=== PATIENT | female | born 1940 | race Caucasian/White ===

== ENCOUNTER 2016-09-12 23:06 | Inpatient (IN) | payer OTHER, MEDICARE ==
[2016-09-12] MEDS ORDERED: Diltiazem 5 mg/mL 5mL Vial IVP STA ×2 (23:19→23:57)
--- NOTE | 2016-09-12 23:21 | ED Physician Chart ---
Chief Complaint/HPI - Patient Information Date Seen:: 09/12/16 Time Seen:: 23:22 Chief Complaint:: sob History of Present Illness:: pt brought in by ems/acls for severe onset sob few hrs ago. pt has no cp. hx of afib and is on elequis for anticoag but no rate ctrl nrmlly needed. hr noted very high by ems. pt got albuterol 5mg neb on way from ems wo much improvement..tachycardic pre and post tx per ems no known fever/cough. no leg edema. Historian:: Patient, EMS Review:: Transfer documents Reviewed Review of Systems - Review of Systems General/Constitutional: No fever, No chills, No weight loss, No weakness, No diaphoresis, No edema, No loss of appetite Skin: No skin lesions, No rash, No bruising Head: No headache, No light-headedness Eyes: No loss of vision, No pain, No diplopia ENT: No earache, No nasal drainage, No sore throat, No tinnitus Neck: No neck pain, No swelling, No thyromegaly, No stiffness, No mass noted Cardio Vascular: No chest pain, Palpitations, No PND, No orthopnea, No edema Pulmonary: SOB, Cough, No cough, No sputum, No wheezing GI: No nausea, No vomiting, No diarrhea, No pain, No melena, No hematochezia, No constipation, No hematemesis G/U: No dysuria, No frequency, No hematuria Musculoskeletal: No bone or joint pain, No back pain, No muscle pain Endocrine: No polyuria, No polydipsia Psychiatric: No prior psych history, No depression, No anxiety, No suicidal ideation Hematopoietic: No bruising, No lymphadenopathy Allergic/Immuno: No urticaria, No angioedema Neurological: No syncope, No focal symptoms, No weakness, No paresthesia, No headache, No seizure, No dizziness, No confusion, No vertigo Past Medical History - Past Medical History Past Medical History: Asthma/COPD, Dementia, Other (a fib) Social History: Care Facility Medication: Reviewed Family Medical History - Family Member Mother History Unknown: Yes Physical Exam - Physical Examination General/Constitutional: Awake, Well-developed, well-nourished, Alert, No distress, Non-toxic appearing Head: Atraumatic Eyes: Lids, conjuctiva normal, PERRL, EOMI Skin: Nl inspection, No rash, No skin lesions, No ecchymosis, Well hydrated, No lymphadenopathy ENMT: External ears, nose nl, Nasal exam nl, Lips, teeth, gums nl Neck: Nontender, Full ROM w/o pain, No JVD, No nuchal rigidity, No bruit, No mass, No stridor Respiratory: Nl effort/Exclusion, Clear to Auscultation Other Respiratory comments:: sev sob. rapis resp. mild wheezes Cardio Vascular: RRR, No murmur, gallop, rubs, NL S1 S2 Other Cardio Vascular comments:: tachycardia 140-160 w irreg on monitor...likely afib rvr GI: No tenderness/rebounding/guarding, No organomegaly, No hernia, Normal BS's, Nondistended, No mass/bruits, No McBurney tenderness : No CVA tenderness Extremities: No tenderness or effusion, Full ROM, normal strength in all extremities, No edema, Normal digits & nails Other Extremities comments:: nontndr legs. no edema Neuro/Psych: Alert/oriented, DTR's symmetric, Normal sensory exam, Normal motor strength, Mood normal, Normal gait, No focal deficits Other Neuro/Psych comments:: mod dementia and too sob to talk much now. Misc: normal gait, Normal back, No paraspinal tenderness Labs/Radiology/EKG Results - Lab Results Results: Laboratory Tests 09/12/16 09/12/16 09/12/16 23:38 23:38 23:38 WBC 13.1 H RBC 3.09 L Hgb 9.9 L Hct 29.2 L MCV 94.6 MCH 32.0 H MCHC Differential 33.9 RDW 12.8 Plt Count 256 MPV 9.0 Neutrophils % 77.0 Lymphocytes % 15.4 L Monocytes % 7.1 Eosinophils % 0.3 Basophils % 0.2 PT INR PTT (Actin FS) D-Dimer Sodium 138 Potassium 4.0 Chloride 109 H Carbon Dioxide 15.0 L Anion Gap 18.0 H BUN 17 Creatinine 1.8 H Est GFR ( Amer) TNP Est GFR (Non-Af Amer) TNP BUN/Creatinine Ratio 9.4 Glucose 188 H Calcium 10.3 Total Bilirubin 1.3 H AST 167 H ALT 169 H Alkaline Phosphatase 122 H Troponin I 0.67 H* B-Natriuretic Peptide Total Protein 5.9 L Albumin 3.6 L Globulin 2.3 Albumin/Globulin Ratio 1.6 09/12/16 09/12/16 09/12/16 23:38 23:38 23:38 WBC RBC Hgb Hct MCV MCH MCHC Differential RDW Plt Count MPV Neutrophils % Lymphocytes % Monocytes % Eosinophils % Basophils % PT 11.8 H INR 1.18 PTT (Actin FS) 28.1 D-Dimer 2060 H Sodium Potassium Chloride Carbon Dioxide Anion Gap BUN Creatinine Est GFR ( Amer) Est GFR (Non-Af Amer) BUN/Creatinine Ratio Glucose Calcium Total Bilirubin AST ALT Alkaline Phosphatase Troponin I B-Natriuretic Peptide 4300.0 H Total Protein Albumin Globulin Albumin/Globulin Ratio - Radiology Results Results: cxr mild congestion w small effn rt base,. mild c-megally. - EKG Interpretations EKG Time:: 23:25 Rhythm: afib w rvr Sims: -29 Rate: 163 Comments:: ecg #2 at 12;13am ( after meds diltiazem for rate ctrl ) a fib w rate 115, axis 91, no acute injury/strain pattern Assessment - Assessment Critical Care Time: 90 Excludes all billable procedures: Yes This condition life threatening/high prob of deterioration: Yes Assessment/Comments:: pt in extremis...severe sob and tachycardia 140-160bpm. ecg looks very reg w wide complex and rate 163. doesnt look like v tach on monitor. adenosine 6mg iv no effect other than a mild transient slowing..seems to show irreg irreg afib pattern...dilt 10mg iv bolus and 5mg gtt... repeat bolus dilt w better rate effect.. ED Septic Shock - . Is Septic Shock (SBP<90, OR Lactate>4 mmol\L) present?: No Reassessment (Disposition) - Reassessment Reassessment:: case dw dr gill..is admitting pt to icu. asks me to order us for r/o dvt. is aware of high trop and d dimer and elev bnp.. Reassessment Condition:: Improved - Diagnosis Diagnosis:: 1 afib w rvr 2 mild chf exacerbation 3 copd exacerbation 4 high d-dimer of uncertain etiology 5 elevated troponin ...r/o acute coronary syndrome - Aftercare/Follow up Instructions Aftercare/Follow-Up Instructions:: Counseled pt & family regarding lab results/ diagnosis & need follow up - Patient Disposition Admitted to:: ICU Condition at Disposition:: Improved
[2016-09-12] MEDS ORDERED: Diltiazem 5 mg/mL 5mL Vial IVP ONE (23:29)
[2016-09-12 23:51] LABS: % BASOPHILS 0.2 % (0.0-2.0); % EOSINOPHILS 0.3 % (0.0-5.0); % LYMPHOCYTES 15.4 % (20.0-50.0); % MONOCYTES 7.1 % (2.0-10.0); HEMATOCRIT 29.2 % (35.0-45.0); HEMOGLOBIN 9.9 gm/dL (11.7-16.1); MEAN CELL VOLUME 94.6 fl (81-100); MEAN CORPUSCULAR HGB CONC 33.9 pg (28.0-36.0); NEUTROPHILE ABSOLUTE 10.2 Th/cmm (1.8-8.0); PLATELET COUNT 256 Th/cmm (150-400); RED BLOOD COUNT 3.09 Mil/cmm (3.80-5.20); RED CELL DISTRIBUTION WIDTH 12.8 % (11.5-20.0); WHITE BLOOD COUNT 13.1 Th/cmm (4.8-10.8)
[2016-09-12 23:59] LABS: ALB/GLOB RATIO 1.6 (1.0-1.8); ALKALINE PHOSPHATASE 122 U/L (34-104); BILIRUBIN,TOTAL 1.3 mg/dL (0.3-1.0); BUN - UREA NITROGEN 17 mg/dL (7-25); BUN/CREATININE RATIO 9.4; CALCIUM SERUM 10.3 mg/dL (8.6-10.3); CHLORIDE 109 mEq/L (98-107); CREATININE - SERUM 1.8 mg/dL (0.6-1.2); GLUCOSE 188 mg/dL (70-105); SGOT 167 U/L (13-39); SGPT/ALT 169 U/L (7-52); SODIUM SERUM 138 mEq/L (136-145)
[2016-09-13] MEDS ORDERED: Diltiazem 5 mg/mL 5mL Vial IVP ONE
[2016-09-13 00:02] LABS: INR 1.18 (0.5-1.4); PROTHROMBIN TIME (TEST) 11.8 SECONDS (9.5-11.5)
[2016-09-13] MEDS ORDERED: Diltiazem 5 mg/mL 25mL Vial IV ONE (00:26)
--- NOTE | 2016-09-13 00:26 | Admit Criteria Form ---
Admit Criteria Forms - Admit Criteria Diagnosis: ATRIAL FIBRILLATION Clinical Indications for Admission to Inpatient Care (Place 'X' for any and all applicable criteria): Admission indicated for ANY ONE of the following(1)(2)(3)(4)(5) : [ ]I. Myocardial ischemia [X]II. Dyspnea or hypoxemia [ ]III. Hemodynamic instability [ ]IV. Heart failure (e.g., pulmonary edema) (7) [ ]V. New-onset (less than 48 hours) atrial fibrillation with high risk for causing complications secondary to comorbidities (eg, symptomatic heart failure) [ ]. Altered mental status [ ]VII. Syncope [ ]VIII. Patient has implantable cardioverter defibrillator that has fired more than once within past 24hr or needs immediate adjustment of settings that cannot be done other than in inpatient setting. (8) [ ]IX. Suspected accessory pathway (e.g., Lqgio-Sfanzoiuh-Qnfuw syndrome) on ECG [ ]X. Recent systemic thromboembolism (eg, stroke) [ ]XI. Medication toxicity (e.g., digitalis) causing arrhythmia(9) [ ]XII. Underlying medical condition that necessitates inpatient care (e.g., thyrotoxicosis, pneumonia) (10) [ ]XIII. Continuous ECG monitoring is required for condition causing arrhythmia (e.g., severe hyperkalemia, hypokalemia, acid-base disturbance).(11)(12)(13) [ ]XIV. Initiation of antiarrhythmic drug therapy is needed in patient at high risk of adverse effects as indicated by ANY ONE of the following: [ ]a) Significant structural heart disease (e.g., reduced ejection fraction, congenital heart disease, valvular heart disease) [ ]b) Prolonged QT interval [ ]c) Underlying sinus node or atrioventricular conduction disturbances [ ]d) Need for treatment with antiarrhythmic drugs that have significant proarrhythmic potential (e.g., dofetilide, sotalol, procainamide) [ ]e) Patient whose sinus rhythm has never been observed on ECG [ ]XV. Intolerable symptoms despite optimal outpatient treatment [ ]XVI. Elective or urgent cardioversion that cannot be performed on outpatient basis or during observation care. [A] (Use also Atrial Fibrillation: Observation Care ) as appropriate.(14) [ ]XVII.Contraindications and/or Inappropriate clinical situations for Observational Care in patients with Atrial Fibrillation, when ANY ONE of the following is required: [ ]a) Patient with High risk of cardiac embolism (e.g, patients with previous cardiac embolism, LVEF < 40%, age >75 and patients with prosthetic valve) 18 [ ]b) Patient with Moderate risk including DM patient, CAD and patient aged 65-75 18 [ ]c) Patient with any change in cardiac biomarker especially troponin should be managed as high risk in an inpatient setting 19 [ ]d) Physician judgement irrespective of ECG and other diagnostic findings 20 [ ]XVIII.General contraindications and/or Inappropriate clinical situations for Observational Care in patients with Atrial Fibrillation, when ANY ONE of the following is required: [ ]a) Prediction of prolongation of LOS based on ANY ONE of the following may be considered as a contraindication for observational care 2, 3, 4, 5, 6, 7, 8, 9, 10, 11 [ ]i) Age > 65 yrs. [ ]ii) Patient arriving by ambulance [ ]iii) Patient with high acuity [ ]iv) Patient requiring vital sign monitoring [ ]v) Patient on IV medication [ ]b) Systolic blood pressures 180mmHg 3,12 [ ]c) Patient with altered mental status including delirium and other alteration of consciousness3 [ ]d) Patient whose discharge disposition will be to a usp home or rehabilitation home should not be managed in Emergency Department Observation Unit. CMS rule requires 3 days hospital stay before such placement.3,13 [ ]e) Patient with failure to thrive due to broad array of etiologies 3,16,17 [ ]f) Inability to ambulate 3,14 Extended stay beyond goal length of stay may be needed for (1)(25)(26): [ ]a) Unstable comorbidities [ ]b) Persistently uncontrolled atrial fibrillation or other arrhythmias [ ]c) Acute thromboembolic event (e.g., stroke, limb ischemia) [ ]d) Need for inpatient attainment of full anticoagulation The original [employer] content created by [employer] has been revised. The portions of the content which have been revised are identified through the use of italic text or in bold, and [facility] has neither reviewed nor approved the modified material. All other unmodified content is copyright [facility]. Please see references footnoted in the original [facility] edition 2016 Admit Criteria Met?: Yes
[2016-09-13] MEDS ORDERED: Metoprolol tartrate 1 mg/ml 5mL Amp IV ONE ×3 (02:00→03:45)
[2016-09-13] MEDS ORDERED: Metoprolol tartrate 1 mg/ml 5mL Amp IV SCH (02:00)
[2016-09-13] MEDS: NITROGLYCERIN OINT 2% 1 INCH PACKET TP SCH ×2 (02:45→08:47)
[2016-09-13] MEDS ORDERED: Non-Formulary Item 1 EA (Apixaban [Eliquis] 1 TAB) PO SCH (09:00)
[2016-09-13] MEDS: Aspirin 81mg Chewable Tab PO SCH (09:39)
[2016-09-13] MEDS ORDERED: Pneumococcal Vaccine 0.5 mL Vial IM ONE (10:00)
--- NOTE | 2016-09-13 11:07 | History & Physical ---
CHIEF COMPLAINT: Shortness of breath. HISTORY SOURCE: Talking to the daughter and Emergency Room MD. HISTORY OF PRESENT ILLNESS: A 76-year-old female recently placed at [facility] by her insurance after the patient had 2 visits to Emergency Room at [facility], one for acute urinary tract infection and one for acute kidney injury. The patient was on multiple diuretics at that time. The patient's diuretics were discontinued. The patient's daughter states that she has had previous history of stroke and she also has a history of irregular heartbeat. According to the patient, she did have shortness of breath on Saturday and she was taken to [place] [facility]. The patient was not found to have any significant findings and the patient was sent back to retirement. Unfortunately, last night, the patient had shortness of breath and she was given some breathing treatment with albuterol. The patient started to have an irregular heart rate and wheezing as well. The patient was rushed into Emergency Room by 911. The patient was evaluated by the Emergency Room MD and advised to be admitted in the presence of irregular heartbeat, slightly elevated troponin and elevated BNP. The patient has dementia, does not provide any meaningful history. PAST MEDICAL HISTORY: Remarkable for: 1. Chronic atrial fibrillation. 2. CVA. 3. Questionable congestive heart failure. 4. Hypertension. 5. Degenerative joint disease. 6. Osteoporosis. MEDICATIONS AT HOME: List has been reviewed and reconciled appropriately. ALLERGIES: The patient is not allergic to medication. SOCIAL HISTORY: She lives in [facility]. The patient had a long time ago history of alcohol use, but she does not drink any more. The patient has no smoking cigarettes. FAMILY MEDICAL HISTORY: Remarkable for coronary artery disease, CVA and cancer. REVIEW OF SYSTEMS: The patient is very nervous and anxious at this time and does not provide any meaningful history. PHYSICAL EXAMINATION: GENERAL: This patient is alert, awake, lying in the bed without any acute distress. VITAL SIGNS: Temperature 99, pulse is 114, respiratory rate is 20, blood pressure 100/60. SKIN: Warm to touch. HEENT: Normocephalic, atraumatic. Extraocular muscles are intact. Tongue was pink and coated. NECK: Supple, no JVD, no lymphadenopathy, thyromegaly. HEART: Both heart sounds are irregularly irregular. CHEST AND LUNGS: Equal in expansion with no wheezing, but fine basilar crackles noted. ABDOMEN: Soft. No guarding. No rigidity. Liver and spleen not palpable. No palpable mass. EXTREMITIES: No edema, no cyanosis. Peripheral pulses are +1. No calf tenderness noted. NEUROLOGIC: Alert, awake, follows commands. Decreased power throughout the upper and lower is noted, but no gross neuro deficits noted except remarkable for dementia. AVAILABLE DIAGNOSTIC DATA: Performed in the Emergency Room has been reviewed. Total time reviewing the record is approximately 15 minutes. CLINICAL IMPRESSION: 1. Acute pulmonary edema. 2. Atrial fibrillation with rapid ventricular response. 3. Elevated troponin, rule out non Q-wave myocardial infarction in the presence of cardiac history, though it could be related to demand ischemia from atrial fibrillation and congestive heart failure. 4. Dementia. 5. Degenerative joint disease. 6. Possible congestive heart failure history. PLAN: 1. Admit this patient to ICU. 2. Cardiology consultation. 3. Oxygen. 4. Rate control. 5. Diuretics. 6. Beta-arlene. 7. Statins. 8. IMELDA and ARBs. 9. Cardiac enzymes follow up. 10. Cardiology consultations. 11. Followup lab. 12. Followup chest x-ray. 13. 2D echocardiogram. 14. The patient may require coronary angiogram. We will discuss with deposit refund clerk if troponin starts going up. 15. Needs low molecular weight heparin. 16. Care plan reviewed and discussed with patient's daughter at bedside. JOB# [id number]
--- NOTE | 2016-09-13 12:37 | Diagnostic Imaging Report ---
Bilateral lower extremity Doppler venous ultrasound exam HISTORY: Pain/swelling Sonographic sector images were obtained through the deep venous systems of both legs. Associated Doppler data was obtained. The exam demonstrates patency of the common femoral, superficial femoral, popliteal, and posterior tibial veins bilaterally. Specifically, no thrombus is seen. There are normal compressibility and augmentation responses. IMPRESSION: Negative exam for deep vein thrombophlebitis.
[2016-09-13] MEDS: Potassium Chloride 20 mEq ER Tab PO SCH (12:48)
--- NOTE | 2016-09-13 15:59 | Diagnostic Imaging Report ---
Chest x-ray HISTORY: Shortness of breath Marked cardiomegaly. Metastatic calcination seen in the aorta. There is a degree of pulmonary vascular redistribution suggesting a degree of congestive heart failure. Evidence of minimal right pleural effusion. IMPRESSION: 1. Cardiomegaly with evidence of a degree of congestive heart failure.
[2016-09-13] MEDS ORDERED: Enoxaparin 40 mg/0.4 mL 0.4mL Syr SUBQ SCH (17:00)
--- NOTE | 2016-09-13 17:50 | Cardiology ---
Patient of Dr. Rodriguez. M-MODE ECHOCARDIOGRAM: Mitral valve, anterior leaflet of the mitral valve shows decreased excursion, EF velocity. Posterior leaflet of the mitral valve shows decreased excursion. ____ the patient has increased left ventricle ventricular posterior wall shows increased thickness, decreased excursion. Interventricular septum shows increased thickness, decreased excursion, ejection fraction 35%. Left atrium enlarged 4.2 cm. Aortic root shows normal dimension, normal excursion of aortic leaflets. CONCLUSION: Cardiomyopathy, ejection fraction 35%. Minimal hypertrophy of the left ventricle, left atrial enlargement. 2D ECHO: Long axis view shows enlarged left ventricular cavity with decreased ejection fraction, hypertrophy of the left ventricle. Left atrium enlarged. Aortic root shows normal dimension, normal excursion of aortic leaflets. Short axis view of mitral valve normal. Short axis view of aortic valve normal. Apical four chamber view shows enlarged left ventricular cavity with minimal hypertrophy of the left ventricle. Left atrium enlarged. Right ventricular cavity, right atrium normal, no pericardial effusion. CONCLUSION: Cardiomyopathy, ejection fraction 35%, left atrial enlargement, minimal hypertrophy of the left ventricle. Doppler study shows moderate tricuspid regurgitation, mild aortic regurgitation. JOB# [id number]
[2016-09-13] MEDS ORDERED: Atorvastatin Calcium 10 MG TAB PO SCH (21:00)
--- NOTE | 2016-09-14 02:49 | Consultation ---
The patient of Dr. Rodriguez. HISTORY AND PHYSICAL: This is a 76-year-old female patient who has recently been seen in emergency 2-3 times secondary to urinary tract infection. The patient was last at [facility]. The patient got more short of breath. The patient was given breathing treatment. Following this, the patient continued to have problems. The patient came to the Emergency Room with atrial fibrillation with uncontrolled ventricular response, congestive heart failure with elevated BNP level and slightly elevated troponin level. Hence, Cardiology consult was requested. PAST MEDICAL HISTORY: Atrial fibrillation, CVA with late effect, congestive heart failure, systolic dysfunction, cardiomyopathy, CKD stage 3, hypertension and degenerative joint disease. FAMILY HISTORY: Unremarkable. SOCIAL HISTORY: No history of smoking or alcohol abuse. ALLERGIES: No known allergies. PHYSICAL EXAMINATION: VITAL SIGNS: Blood pressure 106/70, pulse 800 irregular and respirations 28. HEAD: Head is normocephalic. No lumps or bumps. EYES: Pupils equal, reactive to light. Fundi show AV nicking, sclerae white, conjunctivae pink. NECK: Carotid 2+. Normal upstroke. JVD 10 cm above the sternal angle. Thyroid not palpable. Lymph nodes not palpable. CHEST: Shows increased AP diameter. No kyphosis or scoliosis. LUNGS: Bilateral rales. Decreased breath sounds at both the bases. HEART: PMI sixth intercostal space with lateral to midclavicular line. S1 irregular. S2, S3, S4, soft systolic murmur. ABDOMEN: Soft. Liver and spleen not palpable. No organomegaly. Bowel sounds active. NEUROLOGIC: No focal neurological deficit. EXTREMITIES: Peripheral pulses 2+. No pedal edema. CLINICAL IMPRESSION: Atrial fibrillation with rapid ventricular response, slightly elevated troponin level secondary to congestive heart failure, cardiomyopathy and atrial fibrillation. Osteoporosis, dementia, degenerative joint disease and cardiomyopathy, ejection fraction 35%. PLAN: At the present time, we will anticoagulate the patient's diuretics, preload afterload reduction, monitor the patient closely, get an echocardiogram. JOB# [id number]
[2016-09-14 04:51] LABS: HEMATOCRIT 26.8 % (35.0-45.0); HEMOGLOBIN 9.1 gm/dL (11.7-16.1); MEAN CELL VOLUME 92.6 fl (81-100); MEAN CORPUSCULAR HEMOGLOBIN 31.5 pg (27.0-31.0); MEAN CORPUSCULAR HGB CONC 34.1 pg (28.0-36.0); MEAN PLATELET VOLUME 9.6 fl; RED CELL DISTRIBUTION WIDTH 13.2 % (11.5-20.0)
[2016-09-14 05:06] LABS: WHITE BLOOD COUNT 16.5 Th/cmm (4.8-10.8)
[2016-09-14 05:07] LABS: PLATELET COUNT 187 Th/cmm (150-400)
[2016-09-14 05:19] LABS: ALB/GLOB RATIO 1.6 (1.0-1.8); ALKALINE PHOSPHATASE 125 U/L (34-104); ANION GAP 10.8 (7.0-16.0); BILIRUBIN,TOTAL 0.8 mg/dL (0.3-1.0); BUN - UREA NITROGEN 43 mg/dL (7-25); BUN/CREATININE RATIO 17.2; CALCIUM SERUM 9.8 mg/dL (8.6-10.3); CARBON DIOXIDE 19.1 mEq/L (21.0-31.0); CHLORIDE 104 mEq/L (98-107); CREATININE - SERUM 2.5 mg/dL (0.6-1.2); GLUCOSE 113 mg/dL (70-105); MAGNESIUM 2.1 mg/dL (1.9-2.7); POTASSIUM SERUM 4.9 mEq/L (3.5-5.1); SGOT 2404 U/L (13-39); SGPT/ALT 2713 U/L (7-52); SODIUM SERUM 129 mEq/L (136-145)
[2016-09-14 05:35] LABS: BAND NEUTROPHILE 4 % (0-10); BASOPHIL 0 % (0-3); EOSINOPHIL 0 % (0-5); NEUTROPHILS 87 % (40-80); PLATELET ESTIMATE ADEQUATE (NORMAL); PLATELET MORPHOLOGY NORMAL (NORMAL); TOTAL CELLS COUNTED 100
[2016-09-14 05:46] LABS: CHOLESTEROL 111 mg/dL (<200); TRIGLYCERIDES 80 mg/dL (<150)
[2016-09-14] MEDS: Aspirin 81mg Chewable Tab PO SCH (08:26)
[2016-09-14] MEDS: Potassium Chloride 20 mEq ER Tab PO SCH (08:30)
[2016-09-14 10:43] LABS: INR 1.3 (0.5-1.4); PROTHROMBIN TIME (TEST) 13.1 SECONDS (9.5-11.5)
--- NOTE | 2016-09-14 16:06 | Diagnostic Imaging Report ---
CHEST X-RAY: AP view INDICATION: CHF COMPARISON: Chest x-ray 09/12/2016 FINDINGS: Improving congestive changes are seen. Small bilateral effusions are noted. Cardiomegaly is noted with atherosclerosis. IMPRESSION: Improving congestive changes. Small bilateral effusions. Atelectasis versus less likely infiltrate of the lung bases cannot be excluded. Cardiomegaly and atherosclerotic vascular disease.
[2016-09-14] MEDS ORDERED: Enoxaparin 60 mg/0.6 mL 0.6mL Syr SUBQ SCH (17:00)
[2016-09-14] MEDS: Enoxaparin 80 mg/0.8 mL 0.8mL Syr SUBQ SCH (17:27)
[2016-09-15 05:16] LABS: % BASOPHILS 0.1 % (0.0-2.0); % EOSINOPHILS 0.3 % (0.0-5.0); % LYMPHOCYTES 10.8 % (20.0-50.0); % MONOCYTES 6.4 % (2.0-10.0); % NEUTROPHILS 82.4 % (40.0-80.0); MEAN CELL VOLUME 91.7 fl (81-100); MEAN CORPUSCULAR HEMOGLOBIN 31.7 pg (27.0-31.0); MEAN CORPUSCULAR HGB CONC 34.6 pg (28.0-36.0); MEAN PLATELET VOLUME 10.1 fl; PLATELET COUNT 210 Th/cmm (150-400); RED BLOOD COUNT 2.83 Mil/cmm (3.80-5.20); RED CELL DISTRIBUTION WIDTH 12.8 % (11.5-20.0); WHITE BLOOD COUNT 13.3 Th/cmm (4.8-10.8)
[2016-09-15 05:27] LABS: ALB/GLOB RATIO 1.6 (1.0-1.8); ALKALINE PHOSPHATASE 113 U/L (34-104); ANION GAP 9.2 (7.0-16.0); BILIRUBIN,TOTAL 0.6 mg/dL (0.3-1.0); BUN - UREA NITROGEN 52 mg/dL (7-25); BUN/CREATININE RATIO 23.6; CALCIUM SERUM 9.4 mg/dL (8.6-10.3); CARBON DIOXIDE 19.3 mEq/L (21.0-31.0); CHLORIDE 107 mEq/L (98-107); CREATININE - SERUM 2.2 mg/dL (0.6-1.2); GLUCOSE 90 mg/dL (70-105); MAGNESIUM 2.2 mg/dL (1.9-2.7); POTASSIUM SERUM 4.5 mEq/L (3.5-5.1); SODIUM SERUM 131 mEq/L (136-145)
[2016-09-15 05:51] LABS: SGPT/ALT 2098 U/L (7-52)
[2016-09-15 05:52] LABS: SGOT 1147 U/L (13-39)
--- NOTE | 2016-09-15 07:34 | Consultation ---
REASON FOR CONSULTATION: Abnormal liver enzymes. HISTORY OF PRESENT ILLNESS: This consult was obtained through the courtesy of Dr. Rodriguez for this 76-year-old with history of CVA, hypertension, obesity, atrial fibrillation, possible congestive heart failure, degenerative joint disease and osteoporosis, admitted to the hospital because of rapid atrial fibrillation. While in the hospital, she had a significant elevation of liver enzymes. GI consult was called in for further evaluation. The patient is a poor historian. She denies any abdominal pain, nausea, vomiting, diarrhea, constipation or bleeding. PAST MEDICAL HISTORY: CVA, atrial fibrillation, congestive heart failure, hypertension, degenerative joint disease, and osteoporosis. PAST SURGICAL HISTORY: Denies. SOCIAL HISTORY: Nonsmoker, nonalcoholic, non-IV drug abuser. FAMILY HISTORY: She has sisters with breast cancer. ALLERGIES: No known drug allergies. MEDICATIONS: The patient is on aspirin, citalopram, Celexa, Aricept, Lovenox, Lasix, Cozaar, Lopressor, Protonix, potassium, REVIEW OF SYSTEMS: Again, no weight loss. No nausea, vomiting, hematemesis, diarrhea, constipation, abdominal pain. PHYSICAL EXAMINATION: GENERAL: The patient is awake, oriented to self and place. VITAL SIGNS: Blood pressure is 126/72, heart rate 96, respiratory rate 20 and temperature is 97.4. HEAD AND NECK: Pupils reactive to light. Extraocular muscles intact. Sclerae are anicteric. Conjunctivae not pale. Oral cavity, no lesion. NECK: Supple. No jugular venous distention. No carotid bruit or lymph node. CHEST: Good respiratory movements. LUNGS: Showed few rhonchi. CARDIOVASCULAR SYSTEM: Regular rate and rhythm. No murmur or gallop. ABDOMEN: Soft, obese, positive bowel sounds. EXTREMITIES: No edema. CENTRAL NERVOUS SYSTEM: Nonfocal. LABORATORY DATA: PT is 13.1 seconds. D-dimer is 2060. White count is 16.5, H and H of 9.1 and 26.8 with platelets of 187. Chemistry: AST was 167 two days ago, now 2404. ALT was 169 two days ago, now 2713. Bilirubin is 0.8, alkaline phosphatase 125. IMPRESSION: A 76-year-old with multiple medical problems, now with abnormal liver enzymes. ASSESSMENT AND PLAN: This significant elevation of liver enzymes in this clinical setting is consistent with acute ischemic hepatitis. Other differential would include drug-induced hepatotoxicity verus acute viral hepatitis, even though both are less likely and the picture is not suggestive of autoimmune as well. RECOMMENDATIONS: 1. Monitor labs. 2. Check Tylenol level. 3. Check hepatitis panel. 4. Recheck liver enzymes in the morning. 5. Abdominal ultrasound. 6. Further recommendations to follow. The expectation was acute ischemic hepatitis, that number would continue to improve rapidly. If not, then further recommendations would follow. Other medical problems such as hypertension, congestive heart failure, atrial fibrillation, etc., as per Dr. Rodriguez. Thank you, Dr. Rodriguez, for allowing me to participate in the care of this patient. If you have any further questions, please let me know. JOB# [id number]
[2016-09-15] MEDS: Aspirin 81mg Chewable Tab PO SCH (08:30)
[2016-09-15] MEDS: Potassium Chloride 20 mEq ER Tab PO SCH (08:31)
--- NOTE | 2016-09-15 10:12 | Diagnostic Imaging Report ---
Abdominal ultrasound HISTORY: Abnormal liver function tests, pain The liver appears enlarged. No definite focal lesions seen. The gallbladder appears contracted. As the patient was not fasting, the finding is inconclusive. If gallbladder disease is suspected, the exam should be repeated with the patient nothing by mouth. No biliary dilatation. The pancreas cannot be seen due to bowel gas. The kidneys appear normal bilaterally. No other retroperitoneal or intra-abdominal abnormalities. IMPRESSION: 1. Contracted gallbladder. As the patient was not fasting, the finding is inconclusive. If gallbladder disease is suspected, repeat exam with the patient nothing by mouth recommended. 2. Hepatomegaly
--- NOTE | 2016-09-15 10:25 | Diagnostic Imaging Report ---
Portable chest x-ray HISTORY: Shortness of breath Compared with prior exam of 2016, the heart is enlarged. Atherosclerotic calcification seen in the tortuous aorta. Density noted about the left costophrenic angle. Findings may be associated with a small pleural effusion. No acute focal pulmonary parenchymal processes. IMPRESSION: 1. Cardiomegaly with atherosclerotic vascular changes 2. Question small left pleural effusion 3. No definite acute focal pulmonary parenchymal processes
[2016-09-15 11:09] LABS: HEP B CORE IGM Negative (Negative); HEP C ANTIBODY <0.1 s/co ratio (0.0-0.9)
[2016-09-15] MEDS: Enoxaparin 80 mg/0.8 mL 0.8mL Syr SUBQ SCH (19:02)
[2016-09-16 04:48] LABS: MEAN PLATELET VOLUME 9.5 fl; RED BLOOD COUNT 2.87 Mil/cmm (3.80-5.20)
[2016-09-16 05:14] LABS: % BASOPHILS 0.2 % (0.0-2.0); % EOSINOPHILS 1.1 % (0.0-5.0); % NEUTROPHILS 70.7 % (40.0-80.0); HEMATOCRIT 26.8 % (35.0-45.0); MEAN CELL VOLUME 93.4 fl (81-100); MEAN CORPUSCULAR HEMOGLOBIN 31.5 pg (27.0-31.0); MEAN CORPUSCULAR HGB CONC 33.7 pg (28.0-36.0); NEUTROPHILE ABSOLUTE 6.3 Th/cmm (1.8-8.0); PLATELET COUNT 225 Th/cmm (150-400)
[2016-09-16 05:24] LABS: AMYLASE SERUM 89 U/L (29-103); ANION GAP 7.1 (7.0-16.0); BILIRUBIN,TOTAL 0.7 mg/dL (0.3-1.0); BUN - UREA NITROGEN 51 mg/dL (7-25); BUN/CREATININE RATIO 28.3; CALCIUM SERUM 9.5 mg/dL (8.6-10.3); CHLORIDE 108 mEq/L (98-107); CREATININE - SERUM 1.8 mg/dL (0.6-1.2); GLUCOSE 89 mg/dL (70-105); LIPASE 151 U/L (11-82); POTASSIUM SERUM 4.1 mEq/L (3.5-5.1); SODIUM SERUM 132 mEq/L (136-145); URIC ACID 11.3 mg/dL (2.3-6.6)
[2016-09-16 05:25] LABS: ALB/GLOB RATIO 1.9 (1.0-1.8); BILIRUBIN,DIRECT 0.26 mg/dL (0.0-0.2); BILIRUBIN,TOTAL 0.7 mg/dL (0.3-1.0)
[2016-09-16 05:28] LABS: WHITE BLOOD COUNT 8.9 Th/cmm (4.8-10.8)
[2016-09-16 05:36] LABS: ALB/GLOB RATIO 1.9 (1.0-1.8); ALKALINE PHOSPHATASE 119 U/L (34-104); SGOT 673 U/L (13-39); SGPT/ALT 1789 U/L (7-52)
[2016-09-16 05:48] LABS: INR 1.1 (0.5-1.4)
[2016-09-16 06:36] LABS: TSH 1.75 uIU/ml (0.34-5.60)
[2016-09-16] MEDS: Aspirin 81mg Chewable Tab PO SCH (09:49)
[2016-09-16] MEDS ORDERED: Morphine Sulfate 2 mg/mL 1mL Syr IVP PRN (12:37)
[2016-09-16] MEDS ORDERED: Albuterol Nebulizer 2.5mg/3mL IH PRN (12:37)
[2016-09-16] MEDS ORDERED: guaiFENesin 200 MG/10 ML UDC PO PRN (12:37)
--- NOTE | 2016-09-16 12:41 | Internal Medicine Prog Note ---
Internal Medicine Subjective - Subjective Patient seen and examined:: with staff, chart reviewed Patient is:: awake, verbal, interactive Patient Complaints of:: congestion Per staff patient is:: no adverse event, poor appetite, noncompliant, confused Internal Medicine Objective - Results Result Diagrams: 09/16/16 04:35 09/16/16 04:35 Recent Labs: Laboratory Last Values WBC 8.9 Th/cmm (4.8-10.8) D 09/16/16 04:35 RBC 2.87 Mil/cmm (3.80-5.20) L 09/16/16 04:35 Hgb 9.0 gm/dL (11.7-16.1) L 09/16/16 04:35 Hct 26.8 % (35.0-45.0) L 09/16/16 04:35 MCV 93.4 fl (81-100) 09/16/16 04:35 MCH 31.5 pg (27.0-31.0) H 09/16/16 04:35 MCHC Differential 33.7 pg (28.0-36.0) 09/16/16 04:35 RDW 13.0 % (11.5-20.0) 09/16/16 04:35 Plt Count 225 Th/cmm (150-400) 09/16/16 04:35 MPV 9.5 fl 09/16/16 04:35 Neutrophils % 70.7 % (40.0-80.0) 09/16/16 04:35 Band Neutrophils % 4 % (0-10) 09/14/16 04:30 Lymphocytes % 18.0 % (20.0-50.0) L 09/16/16 04:35 Monocytes % 10.0 % (2.0-10.0) 09/16/16 04:35 Eosinophils % 1.1 % (0.0-5.0) 09/16/16 04:35 Basophils % 0.2 % (0.0-2.0) 09/16/16 04:35 Neutrophils (Manual) 87 % (40-80) H 09/14/16 04:30 Lymphocytes 5 % (20-50) L 09/14/16 04:30 Monocytes 4 % (2-10) 09/14/16 04:30 Eosinophils 0 % (0-5) 09/14/16 04:30 Basophils 0 % (0-3) 09/14/16 04:30 Platelet Estimate ADEQUATE (NORMAL) 09/14/16 04:30 Platelet Morphology NORMAL (NORMAL) 09/14/16 04:30 RBC Morph Micro Appear NORMAL (NORMAL) 09/14/16 04:30 PT 11.0 SECONDS (9.5-11.5) 09/16/16 04:35 INR 1.10 (0.5-1.4) 09/16/16 04:35 PTT (Actin FS) 28.5 SECONDS (26.0-38.0) 09/14/16 04:30 D-Dimer 2060 ng/mL (100-400) H 09/12/16 23:38 Sodium 132 mEq/L (136-145) L 09/16/16 04:35 Potassium 4.1 mEq/L (3.5-5.1) 09/16/16 04:35 Chloride 108 mEq/L (98-107) H 09/16/16 04:35 Carbon Dioxide 21.0 mEq/L (21.0-31.0) 09/16/16 04:35 Anion Gap 7.1 (7.0-16.0) 09/16/16 04:35 BUN 51 mg/dL (7-25) H 09/16/16 04:35 Creatinine 1.8 mg/dL (0.6-1.2) H 09/16/16 04:35 Est GFR ( Amer) TNP 09/16/16 04:35 Est GFR (Non-Af Amer) TNP 09/16/16 04:35 BUN/Creatinine Ratio 28.3 09/16/16 04:35 Glucose 89 mg/dL (70-105) 09/16/16 04:35 Hemoglobin A1c % 5.5 % (4.0-6.0) 09/12/16 23:38 Uric Acid 11.3 mg/dL (2.3-6.6) H 09/16/16 04:35 Calcium 9.5 mg/dL (8.6-10.3) 09/16/16 04:35 Magnesium 2.2 mg/dL (1.9-2.7) 09/15/16 04:35 Total Bilirubin 0.7 mg/dL (0.3-1.0) 09/16/16 04:35 Direct Bilirubin 0.26 mg/dL (0.0-0.2) H 09/16/16 04:35 AST 673 U/L (13-39) H 09/16/16 04:35 ALT 1789 U/L (7-52) H 09/16/16 04:35 Alkaline Phosphatase 119 U/L (34-104) H 09/16/16 04:35 Ammonia 94 umol/L (16-53) H 09/16/16 04:35 Troponin I 0.15 ng/mL (0.01-0.05) H* D 09/16/16 04:35 B-Natriuretic Peptide 3360.0 pg/mL (5.0-100.0) H 09/14/16 04:30 Total Protein 4.6 gm/dL (6.0-8.3) L 09/16/16 04:35 Albumin 3.0 gm/dL (3.7-5.3) L 09/16/16 04:35 Globulin 1.6 gm/dL 09/16/16 04:35 Albumin/Globulin Ratio 1.9 (1.0-1.8) H 09/16/16 04:35 Triglycerides 80 mg/dL (<150) 09/14/16 04:30 Cholesterol 111 mg/dL (<200) 09/14/16 04:30 LDL Cholesterol Direct 59 mg/dL (75-193) L 09/14/16 04:30 HDL Cholesterol 38 mg/dL (23-92) 09/14/16 04:30 Amylase 89 U/L (29-103) 09/16/16 04:35 Lipase 151 U/L (11-82) H 09/16/16 04:35 TSH 1.75 uIU/ml (0.34-5.60) 09/16/16 04:35 Acetaminophen < 10.0 ug/mL (10.0-30.0) L 09/14/16 04:30 Hepatitis A IgM Ab Negative (Negative) 09/14/16 04:30 Hep Bs Antigen Negative (Negative) 09/14/16 04:30 Hep B Core IgM Ab Negative (Negative) 09/14/16 04:30 Hepatitis C Antibody <0.1 s/co ratio (0.0-0.9) 09/14/16 04:30 - Physical Exam Vitals and I&O: Vital Signs Temp 97.5 F 09/16/16 11:00 Pulse 106 09/16/16 11:00 Resp 15 09/16/16 11:00 BP 118/73 09/16/16 11:00 Pulse Ox 100 09/16/16 11:00 Intake & Output 09/15/16 09/16/16 09/16/16 18:59 06:59 18:59 Intake Total 600 100 Output Total 1650 450 Balance -1050 -350 Weight (lbs) 89.358 kg 82.781 kg Intake: Oral 600 100 Output: Urine 1650 450 Other: # Bowel Movements 1 Stool Characteristics Soft Soft Brown Brown Active Medications: Current Medications Aspirin (Aspirin Chewable) 81 mg PO DAILY [facility] Stop: 11/12/16 08:59 Last Admin: 09/16/16 09:49 Dose: 81 mg Citalopram Hydrobromide (Celexa) 20 mg PO DAILY [facility] Stop: 11/14/16 09:10 Last Admin: 09/16/16 09:48 Dose: 20 mg Donepezil HCl (Aricept) 5 mg PO DAILY [facility] Stop: 11/14/16 09:09 Last Admin: 09/16/16 09:49 Dose: 5 mg Enoxaparin Sodium (Lovenox) 80 mg SUBQ Q24H [facility] Stop: 11/13/16 15:59 Last Admin: 09/15/16 19:02 Dose: 80 mg Furosemide (Lasix) 20 mg IVP DAILY [facility] Stop: 11/13/16 08:59 Last Admin: 09/16/16 09:48 Dose: 20 mg Losartan Potassium (Cozaar) 25 mg PO DAILY [facility] Stop: 11/12/16 16:59 Last Admin: 09/16/16 09:47 Dose: 25 mg Metoprolol Tartrate (Lopressor) 50 mg PO BID [facility] Stop: 11/12/16 16:59 Last Admin: 09/16/16 09:48 Dose: 50 mg Pantoprazole Sodium (Protonix) 40 mg IVP DAILY [facility] Stop: 11/13/16 00:29 Last Admin: 09/16/16 09:47 Dose: 40 mg General: lethargic, demented HEENT: NC/AT, PERRLA Neck: Supple, + JVD Lungs: congested, rales Cardiovascular: RRR, Normal S1, Normal S2 Abdomen: soft non-tender, globular, positive bowel sound Extremities: excoriation Neurological: no change Internal Medicine Assmt/Plan - Assessment Assessment: acute pulm edema acute chf exac elevated trop\non q mi dementia djd elevated lft anemia leukocytosis hyponatremia ri - Plan Plan: cont on low dose diuretic o2 bronchodilator check labs and cxr card fu gi follow up dayanna rn Nutritional Asmnt/Malnutr-PDOC - Dietary Evaluation Malnutrition Findings (Please click <Entered> for more info): Nutritional Asmnt/Malnutrition Start: 09/13/16 11: 57 Text: Status: Complete Freq: Document 09/13/16 11:57 GSUN (Rec: 09/13/16 12:37 GSUN [email or web address]) Nutritional Asmnt/Malnutrition Patient General Information Nutritional Screening Diagnosis Diagnosis Shortness of breath Pertinent Medical Hx/Surgical Hx Chronic atrial fibrillation, CVA, questionable CHF, HTN, DJD, osteoporosis Subjective Information 76yo F. Consult and trigger recieved for blood glucose > 180, reviewed. Pt was asleep, spoke to family at bedside. Per family, pt vomited last night prior to adm, clarified vomiting is not a chronic issue. Family also noted pt's fluid retention, stating pt appears more swollen than usual. RD informed family on current low sodium diet and provided diet education on low sodium vs. fluid retention. Obtained CBW via bedscale 175lb. Family stated wt loss ~ 20lbs over the past 6mos. BMI 28.2. Spoke to RN, pt toelrated breakfast well, 75% of meal. Per family, no difficulties chewing/ swallowing, good appetite, taste buds present. Current Diet Order/ Nutrition Support low sodium Patient / S.O Can Pertinent Medications lipitor, lasix, klor-con Pertinent Labs 09/12: BUN 17, creatinine 1.8H, glucose 188H, AST 167H, ALT 169H, alkaline phosphatase 122H, troponin 0.67H, BNP 4300H Nutritional Hx/Data Height 1.68 m Height (Calculated Centimeters) 167.6 Current Weight (lbs) 79.379 kg Weight (Calculated Kilograms) 79.4 Weight (Calculated Grams) 61531.7 Usual body Weight (lbs) 175 [place] Body Weight 130 Recent Weight Change Yes Weight Status Overweight GI Symptoms GI Symptoms None Food Allergies No Cultural/Ethnic/Yarsani Belief Unknown. Usual diet at home Unknown. 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 questionable CHF) Nutritional Problem 1. Problem Problem No nutritional problems at this time. Intervention/Recommendation Comments 1. Continue with low sodium diet. 2. Provided education to family on sodium vs. fluid retention. 3. Monitor renal labs. 4. Obtain new weight, monitor fluid retention status. Expected Outcomes/Goals Expected Outcomes/Goals 1. PO intake to meet at leaat 75% of estimated nutritional needs. 2. Improved fluid retention status 3. Weight stabilized. Physician Parameters for PEM Serum Albumin (g/dl) 3.5 - 5.0 (Normal)
[2016-09-16] MEDS: Enoxaparin 80 mg/0.8 mL 0.8mL Syr SUBQ SCH (16:22)
[2016-09-17 07:07] LABS: ALB/GLOB RATIO 1.5 (1.0-1.8); ALKALINE PHOSPHATASE 114 U/L (34-104); ANION GAP 3.9 (7.0-16.0); BILIRUBIN,DIRECT 0.28 mg/dL (0.0-0.2); BILIRUBIN,TOTAL 0.9 mg/dL (0.3-1.0); BUN - UREA NITROGEN 43 mg/dL (7-25); BUN/CREATININE RATIO 28.7; CALCIUM SERUM 9.4 mg/dL (8.6-10.3); CHLORIDE 112 mEq/L (98-107); CREATININE - SERUM 1.5 mg/dL (0.6-1.2); GLUCOSE 91 mg/dL (70-105); MAGNESIUM 2.2 mg/dL (1.9-2.7); POTASSIUM SERUM 3.9 mEq/L (3.5-5.1); SGOT 427 U/L (13-39); SODIUM SERUM 137 mEq/L (136-145)
[2016-09-17 07:22] LABS: % BASOPHILS 0.1 % (0.0-2.0); % LYMPHOCYTES 19.3 % (20.0-50.0); % MONOCYTES 10.7 % (2.0-10.0); % NEUTROPHILS 66.9 % (40.0-80.0); HEMATOCRIT 26.9 % (35.0-45.0); MEAN CELL VOLUME 94.3 fl (81-100); MEAN CORPUSCULAR HEMOGLOBIN 31.6 pg (27.0-31.0); MEAN CORPUSCULAR HGB CONC 33.5 pg (28.0-36.0); MEAN PLATELET VOLUME 9.1 fl; NEUTROPHILE ABSOLUTE 3.8 Th/cmm (1.8-8.0); PLATELET COUNT 247 Th/cmm (150-400); RED BLOOD COUNT 2.85 Mil/cmm (3.80-5.20)
[2016-09-17 07:36] LABS: WHITE BLOOD COUNT 5.7 Th/cmm (4.8-10.8)
[2016-09-17 07:42] LABS: SGPT/ALT 1312 U/L (7-52)
[2016-09-17] MEDS: Aspirin 81mg Chewable Tab PO SCH (09:40)
--- NOTE | 2016-09-17 13:15 | Internal Medicine Prog Note ---
Internal Medicine Subjective - Subjective Patient seen and examined:: with staff, chart reviewed Patient is:: awake, verbal, interactive Patient Complaints of:: congestion Per staff patient is:: no episodes of fall, poor appetite, poor oral intake, unstable gait, other (wants to go to restroom by herself) Internal Medicine Objective - Results Result Diagrams: 09/17/16 05:34 09/17/16 05:34 Recent Labs: Laboratory Last Values WBC 5.7 Th/cmm (4.8-10.8) D 09/17/16 05:34 RBC 2.85 Mil/cmm (3.80-5.20) L 09/17/16 05:34 Hgb 9.0 gm/dL (11.7-16.1) L 09/17/16 05:34 Hct 26.9 % (35.0-45.0) L 09/17/16 05:34 MCV 94.3 fl (81-100) 09/17/16 05:34 MCH 31.6 pg (27.0-31.0) H 09/17/16 05:34 MCHC Differential 33.5 pg (28.0-36.0) 09/17/16 05:34 RDW 13.0 % (11.5-20.0) 09/17/16 05:34 Plt Count 247 Th/cmm (150-400) 09/17/16 05:34 MPV 9.1 fl 09/17/16 05:34 Neutrophils % 66.9 % (40.0-80.0) 09/17/16 05:34 Band Neutrophils % 4 % (0-10) 09/14/16 04:30 Lymphocytes % 19.3 % (20.0-50.0) L 09/17/16 05:34 Monocytes % 10.7 % (2.0-10.0) H 09/17/16 05:34 Eosinophils % 3.0 % (0.0-5.0) 09/17/16 05:34 Basophils % 0.1 % (0.0-2.0) 09/17/16 05:34 Neutrophils (Manual) 87 % (40-80) H 09/14/16 04:30 Lymphocytes 5 % (20-50) L 09/14/16 04:30 Monocytes 4 % (2-10) 09/14/16 04:30 Eosinophils 0 % (0-5) 09/14/16 04:30 Basophils 0 % (0-3) 09/14/16 04:30 Platelet Estimate ADEQUATE (NORMAL) 09/14/16 04:30 Platelet Morphology NORMAL (NORMAL) 09/14/16 04:30 RBC Morph Micro Appear NORMAL (NORMAL) 09/14/16 04:30 PT 11.0 SECONDS (9.5-11.5) 09/16/16 04:35 INR 1.10 (0.5-1.4) 09/16/16 04:35 PTT (Actin FS) 28.5 SECONDS (26.0-38.0) 09/14/16 04:30 D-Dimer 2060 ng/mL (100-400) H 09/12/16 23:38 Sodium 137 mEq/L (136-145) 09/17/16 05:34 Potassium 3.9 mEq/L (3.5-5.1) 09/17/16 05:34 Chloride 112 mEq/L (98-107) H 09/17/16 05:34 Carbon Dioxide 25.0 mEq/L (21.0-31.0) 09/17/16 05:34 Anion Gap 3.9 (7.0-16.0) L 09/17/16 05:34 BUN 43 mg/dL (7-25) H 09/17/16 05:34 Creatinine 1.5 mg/dL (0.6-1.2) H 09/17/16 05:34 Est GFR ( Amer) TNP 09/17/16 05:34 Est GFR (Non-Af Amer) TNP 09/17/16 05:34 BUN/Creatinine Ratio 28.7 09/17/16 05:34 Glucose 91 mg/dL (70-105) 09/17/16 05:34 Hemoglobin A1c % 5.5 % (4.0-6.0) 09/12/16 23:38 Uric Acid 11.3 mg/dL (2.3-6.6) H 09/16/16 04:35 Calcium 9.4 mg/dL (8.6-10.3) 09/17/16 05:34 Magnesium 2.2 mg/dL (1.9-2.7) 09/17/16 05:34 Total Bilirubin 0.9 mg/dL (0.3-1.0) 09/17/16 05:34 Direct Bilirubin 0.28 mg/dL (0.0-0.2) H 09/17/16 05:34 AST 427 U/L (13-39) H 09/17/16 05:34 ALT 1312 U/L (7-52) H 09/17/16 05:34 Alkaline Phosphatase 114 U/L (34-104) H 09/17/16 05:34 Ammonia 94 umol/L (16-53) H 09/16/16 04:35 Troponin I 0.15 ng/mL (0.01-0.05) H* D 09/16/16 04:35 B-Natriuretic Peptide 1640.0 pg/mL (5.0-100.0) H 09/17/16 05:34 Total Protein 4.8 gm/dL (6.0-8.3) L 09/17/16 05:34 Albumin 2.9 gm/dL (3.7-5.3) L 09/17/16 05:34 Globulin 1.9 gm/dL 09/17/16 05:34 Albumin/Globulin Ratio 1.5 (1.0-1.8) 09/17/16 05:34 Triglycerides 80 mg/dL (<150) 09/14/16 04:30 Cholesterol 111 mg/dL (<200) 09/14/16 04:30 LDL Cholesterol Direct 59 mg/dL (75-193) L 09/14/16 04:30 HDL Cholesterol 38 mg/dL (23-92) 09/14/16 04:30 Amylase 89 U/L (29-103) 09/16/16 04:35 Lipase 151 U/L (11-82) H 09/16/16 04:35 TSH 1.75 uIU/ml (0.34-5.60) 09/16/16 04:35 Acetaminophen < 10.0 ug/mL (10.0-30.0) L 09/14/16 04:30 Hepatitis A IgM Ab Negative (Negative) 09/14/16 04:30 Hep Bs Antigen Negative (Negative) 09/14/16 04:30 Hep B Core IgM Ab Negative (Negative) 09/14/16 04:30 Hepatitis C Antibody <0.1 s/co ratio (0.0-0.9) 09/14/16 04:30 - Physical Exam Vitals and I&O: Vital Signs Temp 97.8 F 09/17/16 11:49 Pulse 68 09/17/16 11:49 Resp 17 09/17/16 11:49 BP 124/67 09/17/16 11:49 Pulse Ox 99 09/17/16 11:49 Intake & Output 09/16/16 09/17/16 09/17/16 18:59 06:59 18:59 Intake Total 650 100 Output Total 2500 700 Balance -1850 -600 Intake: Oral 650 100 Output: Urine 2500 700 Other: # Bowel Movements 1 Stool Characteristics Soft Liquid Active Medications: Current Medications Acetaminophen (Tylenol) 650 mg PO Q4HR PRN PRN Reason: Pain or Fever >101 Stop: 11/15/16 12:36 Albuterol Sulfate (Albuterol 2.5mg/3ml Neb Ud) 2.5 mg IH Q2HR PRN PRN Reason: Shortness of Breath or Wheeze Stop: 11/15/16 12:36 Aspirin (Aspirin Chewable) 81 mg PO DAILY [facility] Stop: 11/12/16 08:59 Last Admin: 09/17/16 09:40 Dose: 81 mg Citalopram Hydrobromide (Celexa) 20 mg PO DAILY [facility] Stop: 11/14/16 09:10 Last Admin: 09/17/16 09:38 Dose: 20 mg Donepezil HCl (Aricept) 5 mg PO DAILY [facility] Stop: 11/14/16 09:09 Last Admin: 09/17/16 09:39 Dose: 5 mg Enoxaparin Sodium (Lovenox) 80 mg SUBQ Q24H [facility] Stop: 11/13/16 15:59 Last Admin: 09/16/16 16:22 Dose: 80 mg Furosemide (Lasix) 40 mg IVP DAILY [facility] Stop: 11/17/16 08:59 Guaifenesin (Robitussin) 200 mg PO Q4HR PRN PRN Reason: Cough or Congestion Stop: 11/15/16 12:36 Metoprolol Tartrate (Lopressor) 50 mg PO BID [facility] Stop: 11/12/16 16:59 Last Admin: 09/17/16 09:39 Dose: 50 mg Morphine Sulfate (Morphine) 2 mg IVP Q4HR PRN PRN Reason: Pain (Severe) Stop: 11/15/16 12:36 Ondansetron HCl (Zofran) 4 mg IV Q8H PRN PRN Reason: Nausea / Vomiting Stop: 11/15/16 12:36 Pantoprazole Sodium (Protonix) 40 mg IVP DAILY [facility] Stop: 11/13/16 00:29 Last Admin: 09/17/16 09:40 Dose: 40 mg Zolpidem Tartrate (Ambien) 10 mg PO HS PRN PRN Reason: Insomnia Stop: 11/15/16 12:36 General: lethargic, congested HEENT: NC/AT, PERRLA Neck: Supple, No JVD Lungs: congested, rales Cardiovascular: RRR, Normal S1, Normal S2 Abdomen: soft non-tender, globular, positive bowel sound Extremities: excoriation Neurological: no change Internal Medicine Assmt/Plan - Assessment Assessment: acute pulm edema acute chf exac elevated trop\non q mi dementia djd elevated lft anemia leukocytosis hyponatremia ri - Plan Plan: cont on low dose diuretic o2 bronchodilator check labs and cxr card fu gi follow up dayanna braxton Nutritional Asmnt/Malnutr-PDOC - Dietary Evaluation Malnutrition Findings (Please click <Entered> for more info): Nutritional Asmnt/Malnutrition Start: 09/13/16 11: 57 Text: Status: Complete Freq: Document 09/13/16 11:57 GSUN (Rec: 09/13/16 12:37 GSUN [email or web address]) Nutritional Asmnt/Malnutrition Patient General Information Nutritional Screening Diagnosis Diagnosis Shortness of breath Pertinent Medical Hx/Surgical Hx Chronic atrial fibrillation, CVA, questionable CHF, HTN, DJD, osteoporosis Subjective Information 76yo F. Consult and trigger recieved for blood glucose > 180, reviewed. Pt was asleep, spoke to family at bedside. Per family, pt vomited last night prior to adm, clarified vomiting is not a chronic issue. Family also noted pt's fluid retention, stating pt appears more swollen than usual. RD informed family on current low sodium diet and provided diet education on low sodium vs. fluid retention. Obtained CBW via bedscale 175lb. Family stated wt loss ~ 20lbs over the past 6mos. BMI 28.2. Spoke to RN, pt toelrated breakfast well, 75% of meal. Per family, no difficulties chewing/ swallowing, good appetite, taste buds present. Current Diet Order/ Nutrition Support low sodium Patient / S.O Can Pertinent Medications lipitor, lasix, klor-con Pertinent Labs 09/12: BUN 17, creatinine 1.8H, glucose 188H, AST 167H, ALT 169H, alkaline phosphatase 122H, troponin 0.67H, BNP 4300H Nutritional Hx/Data Height 1.68 m Height (Calculated Centimeters) 167.6 Current Weight (lbs) 79.379 kg Weight (Calculated Kilograms) 79.4 Weight (Calculated Grams) 00337.7 Usual body Weight (lbs) 175 [place] Body Weight 130 Recent Weight Change Yes Weight Status Overweight GI Symptoms GI Symptoms None Food Allergies No Cultural/Ethnic/Scientologist Belief Unknown. Usual diet at home Unknown. 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 questionable CHF) Nutritional Problem 1. Problem Problem No nutritional problems at this time. Intervention/Recommendation Comments 1. Continue with low sodium diet. 2. Provided education to family on sodium vs. fluid retention. 3. Monitor renal labs. 4. Obtain new weight, monitor fluid retention status. Expected Outcomes/Goals Expected Outcomes/Goals 1. PO intake to meet at leaat 75% of estimated nutritional needs. 2. Improved fluid retention status 3. Weight stabilized. Physician Parameters for PEM Serum Albumin (g/dl) 3.5 - 5.0 (Normal)
[2016-09-17] MEDS: Enoxaparin 80 mg/0.8 mL 0.8mL Syr SUBQ SCH (17:19)
--- NOTE | 2016-10-21 14:07 | Discharge Summary ---
PRINCIPAL DIAGNOSES: 1. Acute pulmonary edema. 2. Atrial fibrillation with rapid ventricular response. 3. Non-Q-wave myocardial infarction. 4. Dementia. 5. Degenerative joint disease. 6. Acute kidney injury. 7. Leukocytosis. 8. Chronic kidney disease, III. 9. Abnormal liver function tests. BRIEF TREATMENT FOR THE REASON FOR ADMISSION: A 76-year-old female who [facility] evaluation of acute onset of shortness of breath. The patient was worked up in the Emergency Room and noted to have acute pulmonary edema and atrial fibrillation with rapid ventricular response. The patient was admitted to the hospital for further treatment. HOSPITAL COURSE: The patient was admitted to ICU. The patient was placed on rate control with anticoagulation therapy. Cardiology consultation requested. Echocardiogram was done with ejection fraction of 35%, noted to have abnormal liver function tests, which did require a GI evaluation. Also noted to have acute kidney injury on top of her chronic kidney disease. The patient's family was updated over the patient's condition, diagnosis and treatment plan. The patient did have significant dementia, which was also addressed. The patient belongs to the [facility] and their contracted facility was [facility]. According to the health plan, the patient needs to be transferred to a contracted facility for further management. The patient was transferred to [facility] on 09/17/2016 where the patient will be followed by hospitalist. JOB# [id number]
== END 2016-09-16 11:25 | DRG 291 ==
LOC: ER 23:06 → ICU 09-13 00:50 → MSI 09-16 17:15 → TELE 09-16 17:20
PROVIDERS: ADMIT Internal Medicine; ATTEND Internal Medicine
DX: I13.0 Hypertensive heart and chronic kidney disease with heart failure and stage 1 through stage 4 chronic kidney disease, or unspecified chronic kidney disease (principal); I50.23 Acute on chronic systolic (congestive) heart failure; E87.1 Hypo-osmolality and hyponatremia; F03.90 Unspecified dementia, unspecified severity, without behavioral disturbance, psychotic disturbance, mood disturbance, and anxiety; I42.9 Cardiomyopathy, unspecified; B17.9 Acute viral hepatitis, unspecified; J44.1 Chronic obstructive pulmonary disease with (acute) exacerbation; Z68.1 Body mass index [BMI] 19.9 or less, adult; M19.90 Unspecified osteoarthritis, unspecified site; M81.0 Age-related osteoporosis without current pathological fracture; N18.3 Chronic kidney disease, stage 3 (moderate); D64.9 Anemia, unspecified; I48.2 Chronic atrial fibrillation; I69.30 Unspecified sequelae of cerebral infarction; D72.829 Elevated white blood cell count, unspecified; Z91.14 Patient's other noncompliance with medication regimen; E66.9 Obesity, unspecified
CPT/HCPCS: 36415-UA; 71010-TC; 76700-TC; 80053-TC; 80061-TC; 80074-90; 80076-TC; 80329-TC; 82140-TC; 82150-TC; 82248-TC; 82728-90; 83036-90; 83690-TC; 83735-TC; 83880-TC; 84443-TC; 84484-TC; 84550-TC; 85007-TC; 85025-TC; 85027-TC; 85379-TC; 85610-TC; 85730-TC; 90779; 93005; 93307-TC; 93970-TC-50; 94760; 96374; 96375; 96376; 96379; C9113; J0153; J1160; J1650; J1940; J2930; Z7502; Z7610